=== PATIENT | male | born 1960 | race Native Hawaiian/Other Pacific Islander ===

== ENCOUNTER 2020-04-27 12:17 | Emergency (ER) | payer OTHER ==
[~2020-04-27] VITALS: Ht 170.2 cm; Wt 109.1 kg
[~2020-04-27 12:17] MED LIST: ASPI-728 PO; CANA100T PO; GLIP10 PO; HYDR-1475 PO; LISI-892 PO; METF-911 PO; PRAV20TA4 PO; TRIA15CR49 TP
[2020-04-27 14:18] LABS: BASOPHILS % (AUTO) 0.6 % (0.0-2.0); HEMOGLOBIN 11.9 g/dL (13.5-17.5); LYMPHOCYTES # (AUTO) 1.7 K/uL (1.0-4.8); LYMPHOCYTES % (AUTO) 23.3 % (22.0-44.0); MEAN CORPUSCULAR HEMOGLOBIN 28.2 pg (26.0-34.0); MEAN CORPUSCULAR HGB CONC 32.1 G/dL (31.0-37.0); MEAN CORPUSCULAR VOLUME 88 fL (80-100); MONOCYTES # (AUTO) 0.4 K/uL (0.1-1.0); MONOCYTES % (AUTO) 5.9 % (2.0-9.0); NEUTROPHILS # (AUTO) 4.9 K/uL (1.8-7.7); NEUTROPHILS % (AUTO) 68.2 % (40.0-70.0); PLATELET COUNT (AUTO) 249 K/uL (150-450); RED BLOOD CELL COUNT(AUTO) 4.22 MIL/uL (4.50-5.90); RED CELL DISTRIBUTION WIDTH 15.2 % (11.5-14.5)
[2020-04-27 14:37] LABS: PROTHROMBIN TIME 10.6 SEC (9.4-11.6)
[2020-04-27 16:47] VITALS: BP 138/60
[2020-04-27 17:06] LABS: CALCIUM, TOTAL 8.7 mg/dL (8.8-10.5); CREATININE 1.31 mg/dL (0.60-1.30); POTASSIUM 4.5 mmol/L (3.5-5.1)
[2020-04-27 17:32] LABS: ALBUMIN 2.4 g/dL (3.4-5.0); BILIRUBIN,TOTAL 0.3 mg/dL (0.1-1.0); TOTAL PROTEIN, SERUM 6.9 g/dL (6.4-8.2)
== END 2020-04-27 18:46 | disposition home or self-care (01) ==
LOC: EMS 12:17
DX: N50.89 Other specified disorders of the male genital organs (principal); I11.0 Hypertensive heart disease with heart failure; I50.9 Heart failure, unspecified; E11.9 Type 2 diabetes mellitus without complications; F17.210 Nicotine dependence, cigarettes, uncomplicated; Z79.899 Other long term (current) drug therapy; Z79.82 Long term (current) use of aspirin
CPT/HCPCS: 76700; 76870; 93005; 93306; 99285; 36415-L1; 36415-TC; 71045-TC